=== PATIENT | male | born 1995 ===

== ENCOUNTER 2018-06-09 13:01 | Emergency (ER) | payer OTHER ==
[~2018-06-09] VITALS: Ht 165.1 cm; Wt 68.2 kg
[2018-06-09 13:04] VITALS: BP 116/58; Ht 165.1 cm; Wt 68.2 kg
== END 2018-06-09 14:45 | disposition left against medical advice (07) ==
LOC: D.ER 13:01
DX: R36.9 Urethral discharge, unspecified (principal)